=== PATIENT | male | born 1975 | race Two or more races ===

== ENCOUNTER 2023-04-13 02:52 | Emergency (ER) | payer MEDICAID, SELFPAY ==
[2023-04-13 03:11] VITALS: BP 110/76; PULSE 69; O2SAT 97
[2023-04-13 03:41] VITALS: BP 109/67; PULSE 78; RESP 16; TEMP 36.6; O2SAT 95; BMI 18.7
[2023-04-13 05:12] VITALS: BP 95/62; PULSE 68; RESP 16; TEMP 36.8; O2SAT 98
--- NOTE | 2023-04-13 07:48 | ED.SKABFB ---
HPI - Skin/Abscess/Foreign Bdy General Chief complaint: Skin/Abscess/Foreign Body Stated complaint: left leg numb/burning Time Seen by Provider: 04/13/23 07:47 Source: patient Mode of arrival: ambulatory Limitations: no limitations History of Present Illness HPI narrative: An year old male presents to the ER for evaluation of a itchy, burning, red area on his left lower leg that he noticed yesterday after walking in [place] He states he got bit by a wasp. 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 He states the pain is located to the back of his left lower leg, it is red, warm. He states it is causing numbness to the back of his left leg. He denies any streaking of redness up the leg. No fevers. He has not use any topical medicine or taken any medicine. He denies any shortness of breath or difficulty breathing. He also states that he has left ear pain with excessive drainage. He states he has perforated his eardrum and is now complaining of pain and drainage. He denies any hearing loss but it is slightly muffled. Denies any URI symptoms. MD complaint: rash, insect bite/sting and other (Ear drainage) Tetanus up to date: yes Location: LLE Severity: moderate Quality: burning Pain Consistency: constant Relieving factors: none Exacerbating factors: none Context: witnessed insect bite Treatments prior to arrival: none Related Data Previous Rx's Medication Instructions Recorded amoxicillin 875 mg-potassium 1 tab PO Q12H #14 tabs 04/13/23 clavulanate 125 mg tablet hydrocortisone 2.5 % topical cream 1 appl topical BID #30 grams 04/13/23 ibuprofen 600 mg tablet 600 mg PO Q8H PRN pain #14 tabs 04/13/23 lmxmasha-hutxskggy-howirntqy 3.5 4 drp otic (ear) left Q6H 7 days 04/13/23 mg-10,000 unit/mL-1 % ear #10 mL drops,susp Allergies Allergy/AdvReac Type Severity Reaction Status Date / Time No Known Allergies Allergy Verified 04/13/23 03:44 Review of Systems Review of Systems: Yes all other systems are reviewed and are negative PMFSH Social History Social History Advance Directives: No Advance Directives Information Provided: Yes Physical Exam Vital Signs: Vital Signs: Last Vital Signs Temp 97 F 04/13/23 07:59 Pulse 65 04/13/23 07:59 Resp 18 04/13/23 07:59 BP 93/49 L 04/13/23 07:59 Pulse Ox 96 04/13/23 07:59 O2 Del Method Room Air 04/13/23 07:59 BMI result Body Mass Index 18.7 Appearance: Alert. Oriented X3. No acute distress. HEENT: normal external inspection. Normocephalic atraumatic, face is symmetrical. No oral swelling. Right tympanic membrane is partially obscured by impacted cerumen. Left EAC with erythema, swelling, purulence discharge. Visualize tympanic membrane is intact CVS: Normal heart rate and rhythm. Pulses normal. Respiratory: No respiratory distress. Lungs are clear throughout Skin: Skin warm and dry. Normal skin color. Normal skin turgor. No rashes. Extremities: Posterior aspect left lower leg has a approximately 4 x 3 area of erythema, warmth, tenderness and induration without any central fluctuance. No calf tenderness. Few small superficial abrasions to the left lower leg Neuro: Oriented X 3. Nonfocal, grossly normal Medical Decision Making Medical Decision Making MDM Narrative: 47-year-old male presents to the ER for evaluation of left lower extremity lesion burning, redness, numbness after he was bitten by a wasp yesterday. Symptoms mostly likely due to the wasp sting and has local cellulitic reaction. No evidence of an abscess. No lymphangitis. Patient denies tick bite. No ECM rash. Will start oral antibiotics and pain control for early cellulitis. Ear exam is revealing for otitis externa with purulent discharge. Will start topical antibiotics. Stable for discharge home. Differential Diagnosis Differential Diagnoses: The differential diagnosis associated with the presentation includes Insect bite, cellulitis, tick bite, Lyme disease, poison abhi Otitis media, otitis externa, eardrum perforation Tests considered The following testing was considered but not selected: Considered a tick-borne panel however no confirmed tick bite Prescription Management I considered prescription management with: Pain Medication and Antibiotic Critical Care Time Critical Care Time Critical Care Time: No Discharge Plan Discharge Clinical Impression: Cellulitis, Otitis externa Patient Disposition: Home, Self-Care Instructions: Cellulitis (DC), Otitis Externa (DC) Additional Instructions: you have a reaction to the wasp bite, possible early infection of the leg Take the prescribed antibiotics as directed, complete the entire course and do not miss any doses use the prescribed ear drop as directed do not get water in your ear - put a cotton ball in your ear when you bathe. no swimming If you develop new or worsening symptoms call 911 or come back to the ER for further evaluation. Prescriptions: New fdegyfoj-wjurxcphf-KO 3.5-10,000-1 mg/mL-unit/mL-% drops,suspension 4 drp otic (ear) left Q6H 7 Days Qty: 10 1RF ibuprofen 600 mg tablet 600 mg PO Q8H PRN (Reason: pain) Qty: 14 0RF hydrocortisone 2.5 % cream 1 appl topical BID Qty: 30 0RF amoxicillin-pot clavulanate 875-125 mg tablet 1 tab PO Q12H Qty: 14 0RF Interventions: ED Discharge Assessment Last Done: 04/13/23 08:30 Discharge Date/Time: 04/13/23 08:35
[2023-04-13 07:59] VITALS: BP 93/49; PULSE 65; RESP 18; TEMP 36.1; O2SAT 96
== END 2023-04-13 08:35 | disposition home or self-care (01) ==
PROVIDERS: Emergency Provider Emergency Medicine; PCP Family Medicine
DX: L03.116 Cellulitis of left lower limb (principal); H60.93 Unspecified otitis externa, bilateral; Z79.899 Other long term (current) drug therapy
CPT/HCPCS: 99283